=== PATIENT | male | born 1985 | race African-American/Black ===

== ENCOUNTER 2018-07-19 23:48 | Emergency (ER) | payer MEDICAID ==
[~2018-07-19] VITALS: Ht 170.2 cm; Wt 79.0 kg
[2018-07-20] MEDS ORDERED: KETOROLAC 30MG/ML VIAL IV STA (01:45)
[2018-07-20] MEDS ORDERED: MORPHINE SULFATE 4 MG/ML CPJ (NOT FOR IM USE) IV STA (01:45)
[2018-07-20] MEDS ORDERED: ONDANSETRON HCL 4MG/2ML INJ IV STA (01:45)
[2018-07-20] MEDS ORDERED: SODIUM CHLORIDE 0.9% 1,000 ML IV ONE (01:45)
[2018-07-20 03:01] LABS: CHLORIDE 98 mEq/L (98-107)
[2018-07-20 03:10] LABS: ETHANOL BLOOD < 10 mg/dL
[2018-07-20 03:11] LABS: BASOPHILS % 0.9 % (0.0-2.0); EOSINOPHILS % 1.3 % (0.0-5.0); HEMATOCRIT. 38.7 % (42.0-52.0); HEMOGLOBIN. 13.4 g/dL (14.0-18.0); LYMPHOCYTES % 42.5 % (20.0-50.0); MEAN CORPUSCULAR HEMOGLOBIN 28.2 pg (28.0-32.0); MEAN CORPUSCULAR VOLUME 81.6 fL (80.0-94.0); MEAN PLATELET VOLUME 9.2 fl (7.4-10.4); MONOCYTES % 8.2 % (2.0-8.0); NEUTROPHILS % 47.1 % (40.0-76.0); PLATELET 225 x1000/uL (130-400); RED BLOOD CELL COUNT 4.74 mill/uL (4.7-6.1); RED CELL DISTRIBUTION WIDTH 13.5 % (11.6-14.6)
[2018-07-20 03:25] LABS: BETA HYDROXYBUTYRATE 0.1 mMol/L (0.0-0.3)
[2018-07-20] MEDS ORDERED: INSULIN REGULAR (HUMULIN R) 300UNITS/3ML SUBCUT ONE (05:00)
[2018-07-20 06:36] VITALS: BP 111/73
== END 2018-07-20 06:36 | disposition home or self-care (01) ==
LOC: ER 23:48
DX: E11.65 Type 2 diabetes mellitus with hyperglycemia (principal); E86.0 Dehydration; E78.00 Pure hypercholesterolemia, unspecified; I10 Essential (primary) hypertension; F12.10 Cannabis abuse, uncomplicated
CPT/HCPCS: 36415; 71045; 80053; 82010; 82962; 83690; 83880; 84484; 85025; 93005; 96361; 96372; 96374; 96375; 99284; G0482; J1815; J1885; J2270; J2405; J7030

== ENCOUNTER 2018-11-22 04:28 | Emergency (ER) | payer MEDICAID ==
[~2018-11-22] VITALS: Ht 170.2 cm; Wt 81.0 kg
[2018-11-22] MEDS ORDERED: SODIUM CHLORIDE 0.9% 1,000 ML IV ONE (06:14)
[2018-11-22] MEDS ORDERED: INSULIN REGULAR (HUMULIN R) 300UNITS/3ML SUBCUT ONE (06:15)
[2018-11-22 08:02] VITALS: BP 109/60
== END 2018-11-22 08:03 | disposition home or self-care (01) ==
LOC: ER 04:28
DX: E11.65 Type 2 diabetes mellitus with hyperglycemia (principal); E23.2 Diabetes insipidus; I10 Essential (primary) hypertension; E78.00 Pure hypercholesterolemia, unspecified; F12.10 Cannabis abuse, uncomplicated
CPT/HCPCS: 82962; 96360; 96372; 99283; J1815; J7030; Z7610